=== PATIENT | female | born 1960 | race Caucasian/White ===

== ENCOUNTER → 2019-06-06 11:39 | Outpatient (CLI) | payer OTHER, SELFPAY ==
--- NOTE | 2019-06-06 11:44 | XR_ITS ---
PROCEDURE: XR LUMBAR SPINE MIN 4V CLINICAL INDICATION: Back pain COMPARISON: LS5 LUMBAR SPINE 5 VIEWS from 07/24/2017 FINDINGS: There is stable mild anterior subluxation of L4 on L5. There is stable multiple levels of moderate loss of disc space height throughout the lumbar spine especially L3-4 and L4-5 as well as lower thoracic spine and L1-2 level with anterior small spurs. There is moderate osteopenia which is unchanged. There is stable subchondral sclerosis and facet joint narrowing on the right at L3 through S1 levels and on the left at L4 through S1 levels. There is stable moderate compression deformity specially on the left side at L2 level. Posterior elements are otherwise intact. IMPRESSION: No change. L4 on L5 subluxation from facet arthrosis. Osteopenia. Multiple levels of chronic intervertebral osteochondrosis. Dictated by: Albert Dsouza 06/06/2019 12:12 Electronically signed by Albert Dsouza in [place] 06/06/2019 12:12
[2019-06-06 12:29] LABS: Basophils % 0.2 % (0.1-2.0); Eosinophils # 0.2 K/mm3 (0.0-0.4); Eosinophils % 3.7 % (0.1-12.0); Hematocrit 41.5 % (37.0-47.0); Hemoglobin 13.4 g/dL (12.2-16.2); Lymphocytes # 1.9 K/mm3 (0.7-4.5); Lymphocytes % 31.6 % (10-50); Mean Corpuscular HGB Conc 32.3 g/dL (31.8-35.4); Mean Corpuscular Hemoglobin 33.8 pg (27.0-31.2); Mean Corpuscular Volume 104.6 fl (81-99); Mean Platelet Volume 7.6 fl (7.4-10.4); Monocytes # 0.3 K/mm3 (0.1-1.0); Monocytes % 4.3 % (1.7-9.3); Neutrophils # 3.6 K/mm3 (1.8-7.8); Neutrophils % 60.1 % (37.0-80.0); Platelet Count 260 K/mm3 (142-424); Red Blood Count 3.96 M/mm3 (4.20-5.40); Red Cell Distribution Width 13.8 % (11.5-17.5)
[2019-06-06 14:45] LABS: Erythrocyte Sedimentation Rate > 140 mm/hr (0-30)
[2019-06-06 15:17] LABS: Alanine Aminotransferase 27 U/L (12-78); Albumin Level 4.1 gm/dL (3.4-5.0); Albumin/Globulin Ratio 1.1 (1.1-1.8); Alkaline Phosphatase 109 U/L (46-116); Anion Gap 15.9 mEq/L (5-15); Aspartate Amino Transferase 28 U/L (15-37); Bilirubin,Total 0.7 mg/dL (0.2-1.0); Blood Urea Nitrogen 12 mg/dL (7-18); Calcium 9.3 mg/dL (8.5-10.1); Carbon Dioxide 25 mmol/L (21.0-32.0); Chloride 103 mmol/L (98-107); Creatinine,Serum 0.79 mg/dL (0.55-1.02); Estimated Glomerular Filt Rate 74 ml/min (>60); GFR (African American) 90 ML/MIN (>60); Globulin 3.6 gm/dl (1.3-3.2); Glucose 90 mg/dL (74-106); Potassium 3.9 mmoL/L (3.5-5.1); Sodium 140 mmol/L (136-145); Total Protein,Serum 7.7 gm/dL (6.4-8.2)
[2019-06-06 15:22] LABS: C-Reactive Protein < 0.2 mg/dL (0.0-0.9)
[2019-06-07 12:15] LABS: Anti-Centromere B Antibodies <0.2 AI (0.0-0.9); Anti-Jo-1 <0.2 AI (0.0-0.9); Anti-Smith Antibody <0.2 AI (0.0-0.9); Antichromatin Antibodies <0.2 AI (0.0-0.9); Antiscleroderma-70 Antibodies 0.8 AI (0.0-0.9); RNP Antibodies <0.2 AI (0.0-0.9); Sjogren's Anti-SS-A <0.2 AI (0.0-0.9); Sjogren's Anti-SS-B <0.2 AI (0.0-0.9)
[2019-06-07 17:13] LABS: Anti-DNA (DS) Ab Qn <1 IU/mL (0-9); RA Latex Turbid. 10.6 IU/mL (0.0-13.9)
[2019-06-08 03:36] LABS: PTT-LA 33.9 sec (0.0-51.9); dRVVT 41.6 sec (0.0-47.0)
[2019-06-08 12:26] LABS: Lupus Reflex Interpretation Comment: (.)
[2019-06-11 07:13] LABS: Anti-Cyclic Citrullinated Pept 9 units (0-19)
== END ==
PROVIDERS: PCP Emergency Medicine; Visit Provider Nurse Practitioner Family
DX: M19.90 Unspecified osteoarthritis, unspecified site (principal)
CPT/HCPCS: 36415; 72110; 80053; 85025; 85613; 85651; 86140; 86200; 86225; 86235; 86431

== ENCOUNTER → 2019-06-19 12:28 | Outpatient (CLI) | payer OTHER, SELFPAY | PROVIDERS: PCP Emergency Medicine; Visit Provider Internal Medicine | DX: R00.2 Palpitations (principal) | CPT/HCPCS: 93225; 93226 ==

== ENCOUNTER → 2019-06-21 09:06 | Outpatient (CLI) | payer OTHER, SELFPAY ==
--- NOTE | 2019-06-21 09:08 | XR_ITS ---
PROCEDURE: XR DEXA AXIAL SKELETON CLINICAL HISTORY: osteopenia seen on lumbar spine xray, the patient is postmenopausal, history of fracture as an adult COMPARISON: No exams were available for comparison FINDINGS: The average BMD lumbar spine L1 through L4 is 1.138 grams/centimeter sq with T-score -0.3. The total BMD left hip is 0.762 grams/centimeter squared with T-score -2.0. The left femoral neck is 0.783 grams/centimeter sq with a T-score -1.8 the T-scores for the total right hip and right femoral neck are -1.5 and -1.7 respectively. IMPRESSION: Normal value lumbar spine, osteopenia values for both hips, consider follow-up study in approximately 2 years Dictated by: Dr. Glenn Hinds MD 06/21/2019 11:[address] Glenn Hinds MD in [place] 06/21/2019 11:06
== END ==
PROVIDERS: PCP Emergency Medicine; Visit Provider Emergency Medicine
DX: M85.89 Other specified disorders of bone density and structure, multiple sites (principal)
CPT/HCPCS: 77080

== ENCOUNTER → 2019-06-28 07:20 | Outpatient (CLI) | payer OTHER, SELFPAY ==
--- NOTE | 2019-06-28 07:22 | CA_ITS ---
FORMER[facility] RADIOLOGICAL CONSULTATION Patient Name : Zainab Ambrosio X-RAY # : [id number] Physician: KHOI GALLARDO AGE: 59Y : 1960 00:00:00 ( F ) Exam : CA ECHO DOPPLER COMPLETE ACC # : [id number] Study Date : 06/28/2019 10:13:34 Patient Class : O FINAL REPORT CLINICAL DATA: FINDINGS: TRANSCRIBED REPORT EXAM: Comprehensive 2D, Doppler, and color-flow Echocardiogram Metal Bending Machine Operator: Tiffany Robins CRT Ht: 5 ft 8 in Wt: 217lbs BSA: 2.12 BP: 137/83 mmHg Indications: palpitations, edema, sob, 2D Dimensions LVOT 1.90 cm (M/F) 1.5-2.5 M-Mode Dimensions RVDd 2.30 cm (0.9-2.6) LA Diam 3.80 cm (1.9-4.0) LVDd 4.30 cm (3.5-5.7) Ao Diam 2.80 cm (2.0-3.7) LVDs 2.30 cm (3.5-5.7) AV Cusp 1.90 cm (1.5-2.6) IVSd 1.10 cm (0.6-1.1) PWd 0.90 cm (0.6-1.1) EF (Teich) 78.20% FS 46.50% EDV (Teich) 83.10 mL ESV (Teich) 18.10 mL LV Diastology E/A Ratio 0.90 MED E' 5.27 (< 7 cm/sec) E'/MED E' Ratio 16.50 (>14) LAT E' 9.26 (<10 cm/sec) E/LAT E' Ratio 9.40 (>14) Aortic Valve AoV Peak Thong. 156.00 (50-130 cm/s) AO Peak GR. 10.00 mmHg Mitral Valve MV E Max Thong. 86.90 (40-130 cm/s) MV A Velocity 95.80 (40-130 cm/s) E/A Ratio 0.90 Pulmonary Valve PA Accel Time 141.00 (>120 msec) Tricuspid Valve TR P. Velocity 231.00 cm/s RAP Estimate 10.00 mmHg RVSP 31.00 mmHg Electronically signed by : IMPRESSION: Dictated by at Transcribed by at
--- NOTE | 2019-06-28 07:23 | NM_ITS ---
APPROVED REPORT Exam: Nuclear Stress Test Indication: palpitation, short of breath, fatigue Patient Location: Outpatient Stress Tech: Angela Clark MD Tech:Diann MonsivaisringtonTIARA RT(R)(N) Ht: 5 ft 7 in Wt: 210 lbs Bra Size: 36c HR: 70 bpm BP: 153/86 mmHg BSA: 2.07 m2 BMI: 32.8 History: palpitation, short of breath, fatigue Procedure: Patient received a 0.4 mg of intravenous Lexiscan, resting heart rate 70 bpm, resting blood pressure 153/86 mmHg, with Lexiscan maximum heart rate achived was 92 bpm which is % of the maximum predicted heart rate and blood pressure was 151/86 mmHg. With Lexiscan, patient denied any complaint of chest pain. Cardiac Stress and Resting SPECT Images: Cardiac Stress and Resting SPECT images were obtained using technetium 99m Myoview 31.7 mCi stress and 10.47 mCi at rest. NORMAL EF 80% Probable breast attenuation artifact geovanni- septal region No definite fixed or revwersable defects that would indicate infarction or ischemia Conclusion: NORMAL EF 80% Probable breast attenuation artifact geovanni- septal region No definite fixed or revwersable defects that would indicate infarction or ischemia Electronically signed by : Miki Ruiz MD 06/28/2019 18:13:51
--- NOTE | 2019-06-28 07:23 | CA_ITS ---
APPROVED REPORT Exam: Pharmacologic Technologist: lonnie betancourt, Ht: 5 ft 7 in Wt: 210 lbs BSA: 2.07 m2 HR: 70 bpm BP: 153/86 mmHg Indications: SOB, PALPATATIONS Medical History Medications: Prozac,,,,, Sumatriptan,,,,, Allergies: No known drug allergies Stress Test Details Test: LEXISCAN HR Resting HR: 75 bpm Max Heart Rate (APMHR): 161 bpm Max HR Achieved: 109 bpm Target HR (85% APMHR): 136 bpm % of APMHR: 67 Recovery HR: 77 bpm BP Resting BP: 153.0/86.0 mmHg Max BP: 161/79 mmHg Recovery BP: 140.0/81.0 mmHg ECG Resting ECG: NSR, QWave Inferiorly Maximum ST Deviation: 1.5 mm Clinical Reason for Termination: Completed Protocol Exercise duration: 04:20 min Highest Stage Achieved: Stress ECG Conclusion Symptoms: No CP No Arrhythmias ST-T Changes: < 1.5mm ST Segment Changes Non-Diagnostic Electronically signed by : Rodrigo Cho, 07/02/2019 14:58:55
--- NOTE | 2019-06-28 10:23 | HMH.ITSHM ---
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 [] prozac
== END ==
PROVIDERS: PCP Emergency Medicine; Visit Provider Urology
DX: R00.2 Palpitations (principal); R06.02 Shortness of breath; R42 Dizziness and giddiness; R60.9 Edema, unspecified
CPT/HCPCS: 78452; 93017; 93306; A9502; J2785

== ENCOUNTER → 2019-07-03 09:27 | Outpatient (CLI) | payer OTHER, SELFPAY ==
--- NOTE | 2019-07-03 09:28 | US_ITS ---
PROCEDURE: US ABDOMEN COMPLETE CLINICAL INDICATION: elevated sed rate Elevated sed rate COMPARISON: No exams were available for comparison FINDINGS: PANCREAS: Unremarkable. No obvious mass or abnormal fluid collection. No ductal dilatation LIVER: No focal liver lesions demonstrated. Homogeneous echogenicity. No intrahepatic biliary ductal dilatation evident. There is appropriate direction of blood flow within a non dilated portal vein RIGHT KIDNEY: Unremarkable. Normal size and echogenicity. No hydronephrosis LEFT KIDNEY: Unremarkable. Normal size and echogenicity. No hydronephrosis GALLBLADDER: No gallstones, gallbladder wall thickening, pericholecystic fluid, or biliary dilatation. AORTA: No evidence of aneurysmal dilatation. SPLEEN: Unremarkable. Normal size and echogenicity ASCITES: None demonstrated. IMPRESSION: No acute findings Dictated by: Miki Ruiz MD 07/03/2019 14:54 Electronically signed by Miki Ruiz MD in [facility] 07/03/2019 14:54
--- NOTE | 2019-07-03 09:28 | XR_ITS ---
PROCEDURE: XR CHEST 2V CLINICAL HISTORY: elevated sed rate Shortness of air COMPARISON: No exams were available for comparison FINDINGS: The cardiomediastinal silhouette and pulmonary vascularity are within normal limits. The lungs are clear without infiltrates, suspicious nodules, or pleural effusions. No acute bony abnormalities. IMPRESSION: No acute findings. Dictated by: Miki Ruiz MD 07/03/2019 14:13 Electronically signed by Miki Ruiz MD in [facility] 07/03/2019 14:13
--- NOTE | 2019-07-03 09:28 | US_ITS ---
PROCEDURE: US TRANSVAGINAL CLINICAL INDICATION: Elevated sed COMPARISON: Rate FINDINGS: There has been prior hysterectomy and bilateral oophorectomy. No pelvic mass abnormal fluid collection or other significant anomaly evident. IMPRESSION: Prior complete hysterectomy otherwise negative Dictated by: Miki Ruiz MD 07/03/2019 14:48 Electronically signed by Miki Ruiz MD in [facility] 07/03/2019 14:48
== END ==
PROVIDERS: PCP Nurse Practitioner Family; Visit Provider Nurse Practitioner Family
DX: R70.0 Elevated erythrocyte sedimentation rate (principal)
CPT/HCPCS: 71046; 76700; 76830

== ENCOUNTER → 2019-10-28 10:30 | Outpatient (POV) | payer MEDICAID, SELFPAY ==
[2019-10-28 10:54] VITALS: BP 145/85; PULSE 91; RESP 18; O2SAT 99; BMI 28.8
--- NOTE | 2019-10-28 12:51 | HMH.PMCON ---
Assessment and Plan (1) Back pain Current visit: Yes Status: Chronic Qualifiers: Back pain location: low back pain Chronicity: chronic Back pain laterality: left Category: Medical Code(s): M54.9 - Dorsalgia, unspecified (2) Degenerative disc disease Current visit: Yes Status: Chronic Category: Medical - Assessment and plan all Dx Assessment and Plan for all problems:: We will schedule the patient for an MRI to help determine pathology of her low back so we can move forward with the plan of care. Patient is continuing a home stretching program. He is continuing anti-inflammatories we will follow-up with her after MRI reassess her symptoms at that time. She has been instructed to call the office if she has any issues prior to her next appointment. Dr. Flores has reviewed this note and agrees with this plan of care. This note was dictated using voice recognition software and may contain errors or omissions HPI - Data of Consult Consult date: 10/28/19 Requesting Physician: Ashly Carcamo APRN Primary Care Provider: Alcon Marrero MD - Consult Narrative Reason for consult: Back pain History of present illness: Ms. Ambrosio is a 59 year old female who presents today for consultation in regards to her low back and leg pain. Patient has quite a bit of low back pain is worse with standing long periods of time. She utilizes heating pad and Biofreeze to help with the pain she rates it a 7/10. She is had it for several years she has left leg numbness and tingling all the way to her toes. Patient's tried Motrin with minimal relief. Patient does not have any updated imaging she does have a x-ray that shows degenerative changes and facet arthrosis. CC: Ashly Carcamo APRN [facility] History I have reviewed the patient's past medical history: Yes Medical History: Reports:: Anxiety, Depression, Migraine, Palpitations *Have you ever received a pneumonia vaccine?: Yes *Have you received a flu vaccine this season?: Yes Other Medical History: Reports: Arthritis Other Surgeries: Yes: No Previous Surgery, Hysterectomy-Total Amputation: No Fractures: No - *Social History Smoking Status: Never smoker Alcohol Intake: current Alcohol Intake Frequency:: a few times a week Substance Use Type: denies use *Occupational Status:: other Housing: house Household Members: other *Travel in the last 8 weeks: None - Psychiatric History Pschychiatric History:: Reports:: Anxiety, Depression Family Hx:: Unable to obtain Review of Systems - Review of Systems ROS General: no recent weight change, no fever, no sleep disturbances Respiratory: no cough, no shortness of air, no recurring pulmonary infections Cardiovascular/Peripheral Vascular: No chest pain, No palpitations, no edema, no shortness of breath. Gastrointestinal: no new onset incontinence, normal bowel movements reported Genitourinary: no new onset incontinence Musculoskeletal: Back pain, leg pain Psychiatric: normal mood/ affect Neurological: [denies new onset weakness in extremities], [denies new onset balance issues] Meds Home Medications Medication Instructions Recorded Confirmed Type sumatriptan succinate 100 mg tablet 100 mg PO DAILY PRN #90 tab 06/05/19 10/16/19 Rx bisoprolol fumarate 10 mg tablet 10 mg PO DAILY #30 tab 07/31/19 10/16/19 Rx Allergies Allergy/AdvReac Type Severity Reaction Status Date / Time No Known Allergies Allergy Verified 10/16/19 13:25 Objective Vital signs: Pulse Resp BP Pulse Ox 91 H 18 145/85 H 99 10/28/19 10:54 10/28/19 10:54 10/28/19 10:54 10/28/19 10:54 Narrative: Physical Exam General: Alert and oriented x3, no acute distress, pleasant and cooperative, [on room air] Lungs: Resps E/U, Symmetrical chest expansion, Eyes: PERRL Musculoskeletal: Flexion and extension of lumbar spine somewhat guarded secondary to pain, deep tendon reflexes normal, strength in
== END ==
PROVIDERS: PCP Emergency Medicine; Visit Provider Clinical Nurse Specialist Family Health
DX: M54.9 Dorsalgia, unspecified (principal)
CPT/HCPCS: 99202

== ENCOUNTER → 2019-11-04 08:00 | Outpatient (CLI) | payer MEDICAID, SELFPAY ==
--- NOTE | 2019-11-04 08:08 | MR_ITS ---
PROCEDURE: MR LUMBAR SPINE WO CON CLINICAL INDICATION: BACK PAIN Low back pain with left-sided leg pain, left toe numbness, right-sided low back pain COMPARISON: XR LUMBAR SPINE MIN 4V from 06/06/2019 TECHNIQUE: Standard multiplanar multiecho sequences are performed without contrast. 3-D MIP and myelographic images are also rendered and reviewed FINDINGS: There is mild lumbar scoliosis convex right. The spinal cord ends at the T12-L1 level. There is multilevel lumbar spondylosis. T11-T12: Mild degenerative disc disease. T12-L1: Mild degenerative disc disease. There is a Schmorl's node along the superior endplate of L1 with edematous changes at and about the Schmorl's node. L1-L2: Degenerative disc disease with mild bulging disc and minimal retrolisthesis of L1 of 2 mm. L2-L3: Mild degenerative disc disease with minimal bulging disc which is slightly eccentric toward the left with mild left-sided foraminal narrowing. L3-L4: Mild degenerative disc disease with mild facet ligamentum hypertrophy with bilateral lateral recess narrowing and mild left foraminal narrowing. L4-5: There is mild degenerative disc disease with 4 mm anterolisthesis of L4 along with facet ligamentum hypertrophy and bulging disc with resultant canal stenosis with bilateral lateral recess narrowing and bilateral foraminal narrowing. The lateral recess narrowing slightly greater on the left. L5-S1: Mild facet ligamentum hypertrophy. No extruded herniated disc is evident. IMPRESSION: 1. Lumbar scoliosis convex right with multilevel lumbar spondylosis with degenerative disc disease, bulging disc, and facet ligamentum hypertrophy with varying degrees of lateral recess and foraminal narrowing. Please see above for detailed description at each level. 2. Degenerative disc disease at L4-5 with 4 mm anterolisthesis of L4 along with facet ligamentum hypertrophy and bulging disc with resultant canal stenosis with bilateral lateral recess narrowing and bilateral foraminal narrowing. The lateral recess narrowing slightly greater on the left. 3. No extruded herniated disc evident Dictated by: Miki Ruiz MD 11/05/2019 06:27 Electronically signed by Miki Ruiz MD in [place] 11/05/2019 06:27
== END ==
PROVIDERS: PCP Emergency Medicine; Visit Provider Clinical Nurse Specialist Family Health
DX: M54.5 Low back pain (principal)
CPT/HCPCS: 72148; 76376

== ENCOUNTER → 2019-11-19 12:06 | Outpatient (POV) | payer MEDICAID, SELFPAY ==
--- NOTE | 2019-11-19 12:23 | P.CONS_ITS ---
[facility] Pain Management SOAP Note Subjective:: Patient is a pleasant 59-year-old white female who presents today for follow-up after her MRI. She has degenerative disc disease bulging disc and ligamentum flavum hypertrophy. She rates her pain a 7 out of 10 which of her pain is when she is walking and standing to find herself leaning forward to get relief. We talked about a mild procedure and an epidurogram/epidural injection. She would like to move forward with this. She is not on any anticoagulation therapy. ROS General: no recent weight change, no fever, no sleep disturbances Respiratory: no cough, no shortness of air, no recurring pulmonary infections Cardiovascular/Peripheral Vascular: No chest pain, No palpitations, no edema, no shortness of breath. Gastrointestinal: no new onset incontinence, normal bowel movements reported Genitourinary: no new onset incontinence Musculoskeletal: Back pain, leg pain Psychiatric: normal mood/ affect, [denies depression], [denies anxiety] Neurological: [denies new onset weakness in extremities], [denies new onset balance issues] Objective:: Physical Exam General: Alert and oriented x3, no acute distress, pleasant and cooperative, [on room air] Lungs: Resps E/U, Symmetrical chest expansion, Eyes: PERRL Musculoskeletal: Flexion and extension of lumbar spine somewhat guarded secondary to pain, deep tendon reflexes normal, strength in upper and lower extremities [5/5], [abnormal gait noted] Neurological: speech clear, director education equal, no gross sensory deficits Assessment:: Degenerative disc disease lumbar spine with lumbar radiculopathy and spinal stenosis with ligamentum flavum hypertrophy and neurogenic claudication Plan:: We will set the patient up for L4-L5 lumbar epidural steroid injection along with an epidurogram to determine if she is a candidate for mild procedure. I will follow-up with her afterwards reassess her symptoms at that time she has been instructed to call the office if she has any issues prior to her next appointment. Dr. Flores has reviewed this note and agrees with this plan of care. This note was dictated using voice recognition software and may contain errors or omissions [facility] History I have reviewed the patient's past medical history: Yes Medical History: Reports:: Anxiety, Depression, Migraine, Palpitations *Have you ever received a pneumonia vaccine?: Yes *Have you received a flu vaccine this season?: Yes Other Medical History: Reports: Arthritis Other Surgeries: Yes: No Previous Surgery, Hysterectomy-Total Amputation: No Fractures: No - *Social History Smoking Status: Never smoker Alcohol Intake: current Alcohol Intake Frequency:: a few times a week Substance Use Type: denies use *Occupational Status:: other Housing: house Household Members: other *Travel in the last 8 weeks: None - Psychiatric History Pschychiatric History:: Reports:: Anxiety, Depression Family Hx:: Unable to obtain
[2019-11-19 12:28] VITALS: BP 113/89; PULSE 74; RESP 18; O2SAT 98; BMI 28.8
== END ==
PROVIDERS: PCP Emergency Medicine; Visit Provider Clinical Nurse Specialist Family Health
DX: M48.062 Spinal stenosis, lumbar region with neurogenic claudication (principal); M46.06 Spinal enthesopathy, lumbar region
CPT/HCPCS: 99212

== ENCOUNTER → 2020-10-14 11:53 | Outpatient (CLI) | payer MEDICAID, SELFPAY ==
[2020-10-14 12:16] LABS: Basophils % 0.6 % (0.1-2.0); Eosinophils # 0.2 K/mm3 (0.0-0.4); Eosinophils % 2.7 % (0.1-12.0); Hematocrit 39.9 % (37.0-47.0); Lymphocytes # 2.3 K/mm3 (0.7-4.5); Lymphocytes % 37.9 % (10-50); Mean Corpuscular HGB Conc 32.7 g/dL (31.8-35.4); Mean Corpuscular Hemoglobin 33.5 pg (27.0-31.2); Mean Corpuscular Volume 102.6 fl (81-99); Mean Platelet Volume 8.7 fl (7.4-10.4); Monocytes # 0.3 K/mm3 (0.1-1.0); Monocytes % 5.2 % (1.7-9.3); Neutrophils # 3.3 K/mm3 (1.8-7.8); Neutrophils % 53.6 % (37.0-80.0); Platelet Count 185 K/mm3 (142-424); Red Blood Count 3.89 M/mm3 (4.20-5.40); Red Cell Distribution Width 13.5 % (11.5-17.5); White Blood Count 6.1 K/mm3 (4.8-10.8)
[2020-10-14 12:56] LABS: Alanine Aminotransferase 19 U/L (12-78); Albumin Level 4.5 g/dl (3.5-5.0); Albumin/Globulin Ratio 1.4 (1.1-1.8); Alkaline Phosphatase 107 U/L (38-126); Anion Gap 10.2 mEq/L (5-15); Aspartate Amino Transferase 27 U/L (14-36); Bilirubin,Total 0.4 mg/dl (0.2-1.3); Blood Urea Nitrogen 22 mg/dl (7-17); Calcium 9.8 mg/dl (8.4-10.2); Carbon Dioxide 31 mmol/L (22.0-30.0); Chloride 104 mmol/L (98-107); Chol/HDL Ratio 2.3 (1-3.5); Cholesterol 191 mg/dl (140-200); Estimated Glomerular Filt Rate 102 ml/min (>60); GFR (African American) 123 ML/MIN (>60); Globulin 3.2 g/dL (1.3-3.2); Glucose 93 mg/dl (74-100); HDL Cholesterol 82 mg/dl (40-60); Potassium 4.2 mmoL/L (3.5-5.1); Sodium 141 mmol/L (136-145); Total Protein,Serum 7.7 g/dl (6.3-8.2); Triglycerides 234 mg/dl (30-150); VLDL Cholesterol 47 mg/dL (0-40)
[2020-10-14 13:00] LABS: Alanine Aminotransferase 19 U/L (12-78); Albumin Level 4.5 g/dl (3.5-5.0); Alkaline Phosphatase 109 U/L (38-126); Aspartate Amino Transferase 27 U/L (14-36); Bilirubin,Indirect 0.4 mg/dL (0.0-0.9); Bilirubin,Total 0.4 mg/dl (0.2-1.3); Bilirubin,Unconjugated 0.4 mg/dL (0.0-1.1); Total Protein,Serum 7.6 g/dl (6.3-8.2)
[2020-10-14 13:07] LABS: Direct LDL Cholesterol 54.06 mg/dL (100-129)
[2020-10-14 13:13] LABS: Free T4 (Free Thyroxine) 0.95 ng/dl (0.78-2.19)
[2020-10-14 13:17] LABS: 25-OH Vitamin D, Total < 12.8 ng/mL (30-100)
[2020-10-14 13:26] LABS: Thyroid Stimulating Hormone 7.38 uIU/mL (0.465-4.68)
== END ==
PROVIDERS: Nurse Practitioner Family; Visit Provider Emergency Medicine
DX: I10 Essential (primary) hypertension (principal); E55.9 Vitamin D deficiency, unspecified; E66.9 Obesity, unspecified
CPT/HCPCS: 36415; 80053; 80061; 80076; 82306; 84439; 84443; 85025

== ENCOUNTER → 2022-12-15 09:58 | Outpatient (CLI) | payer MEDICAID, SELFPAY ==
--- NOTE | 2022-12-15 10:03 | XR_ITS ---
FINAL REPORT CLINICAL HISTORY: right hip pain COMPARISON: None FINDINGS: RIGHT HIP Two views of the right hip demonstrate no acute fracture or dislocation. There is mild degenerative change of the bilateral hips and lower lumbar spine. The visualized bony structures are well aligned. No soft tissue abnormality is seen. IMPRESSION: Degenerative change with no acute bony abnormality. Reviewed, Interpreted and Dictated by Roger Barros III, MD Transcribed by Kalina Khan Authenticated and [facility]
== END ==
PROVIDERS: PCP Emergency Medicine; Visit Provider Orthopaedic Surgery
DX: M25.551 Pain in right hip (principal)
CPT/HCPCS: 73502

== ENCOUNTER → 2022-12-22 14:28 | Outpatient (CLI) | payer MEDICAID, SELFPAY ==
[2022-12-22 16:35] LABS: Basophils % 0.3 % (0.1-2.0); Eosinophils # 0.2 K/mm3 (0.0-0.4); Eosinophils % 1.9 % (0.1-12.0); Hematocrit 42.5 % (37.0-47.0); Hemoglobin 13.4 g/dL (12.2-16.2); Lymphocytes # 2.3 K/mm3 (0.7-4.5); Lymphocytes % 28.4 % (10-50); Mean Corpuscular HGB Conc 31.5 g/dL (31.8-35.4); Mean Corpuscular Hemoglobin 32.5 pg (27.0-31.2); Mean Corpuscular Volume 103.2 fl (81-99); Mean Platelet Volume 8.9 fl (7.4-10.4); Monocytes # 0.5 K/mm3 (0.1-1.0); Monocytes % 5.7 % (1.7-9.3); Neutrophils # 5.1 K/mm3 (1.8-7.8); Neutrophils % 63.7 % (37.0-80.0); Platelet Count 255 K/mm3 (142-424); Red Blood Count 4.12 M/mm3 (4.20-5.40); Red Cell Distribution Width 13.6 % (11.5-17.5)
[2022-12-22 16:56] LABS: Chloride 103 mmol/L (98-107); Sodium 140 mmol/L (136-145)
[2022-12-22 16:58] LABS: Blood Urea Nitrogen 18 mg/dl (7-17); Estimated Glomerular Filt Rate 125 ml/min (>60); GFR (African American) 151 ML/MIN (>60)
[2022-12-22 16:59] LABS: Alanine Aminotransferase 28 U/L (12-78); Albumin Level 4.4 g/dl (3.5-5.0); Alkaline Phosphatase 115 U/L (38-126); Aspartate Amino Transferase 35 U/L (14-36); Bilirubin,Direct 0.1 mg/dl (0.0-0.4); Bilirubin,Indirect 0.4 mg/dL (0.0-0.9); Bilirubin,Total 0.5 mg/dl (0.2-1.3); Bilirubin,Unconjugated 0.4 mg/dL (0.0-1.1); Calcium 9.3 mg/dl (8.4-10.2); Carbon Dioxide 27 mmol/L (22.0-30.0); Cholesterol 197 mg/dl (140-200); Glucose 73 mg/dl (74-100); Total Protein,Serum 7.3 g/dl (6.3-8.2); Triglycerides 176 mg/dl (30-150); VLDL Cholesterol 35 mg/dL (0-40)
[2022-12-22 17:00] LABS: Chol/HDL Ratio 2.6 (1-3.5); HDL Cholesterol 75 mg/dl (40-60)
[2022-12-22 17:10] LABS: Direct LDL Cholesterol 69.35 mg/dL (100-129)
[2022-12-22 17:15] LABS: Free T4 (Free Thyroxine) 0.78 ng/dl (0.78-2.19)
[2022-12-22 17:30] LABS: Thyroid Stimulating Hormone 3.14 uIU/mL (0.465-4.68)
== END ==
PROVIDERS: PCP Emergency Medicine; Visit Provider Physician Assistant
DX: R00.2 Palpitations (principal); I10 Essential (primary) hypertension; R60.0 Localized edema
CPT/HCPCS: 36415; 80048; 80061; 80076; 83735; 84439; 84443; 85025; 93225; 93226

== ENCOUNTER → 2022-12-29 14:32 | Outpatient (CLI) | payer MEDICAID, SELFPAY ==
[2022-12-29 17:01] LABS: Vitamin B12 321 pg/mL (239-931)
[2022-12-29 17:03] LABS: Folate 6.22 ng/mL
== END ==
PROVIDERS: PCP Emergency Medicine; Visit Provider Physician Assistant
DX: R20.0 Anesthesia of skin (principal)
CPT/HCPCS: 36415; 82607; 82746

== ENCOUNTER → 2023-01-06 11:37 | Outpatient (POV) | payer MEDICAID, SELFPAY ==
[2023-01-06 12:39] VITALS: BP 139/70; PULSE 82; RESP 18; O2SAT 96; BMI 31.3
--- NOTE | 2023-01-06 13:18 | EXP.PAIN.OV ---
HPI Data of Consult Patient: new to practice Consult date: 01/06/23 Requesting Physician: Krystal Javier APRN Primary Care Provider: Alcon Marrero MD Consult Narrative Reason for consult: Low back pain, right hip pain History of present illness: Ms. Ambrosio is a 62 year old female who presents today as a new patient. She is a referral from Dr. Javier's office here at [facility]. Her pain today is a 9 out of 10. She states her pain is all in her low back and right hip. She states this has been going on for years and progressively worsened over time. She does believe it is all related to arthritis. Patient has had an older MRI done from a couple of years ago and is also had a recent right hip x-ray that did just show arthritis. Patient does describe her pain as an aching, throbbing, constant sensation that is worse with additional movement or activity. Patient states it does interfere with her ability to perform activities of daily living such as cooking and cleaning. Patient states she cannot walk for long distances due to her worsening symptoms and frequently has to take multiple breaks. She does state that she was active before all this started being more problematic a couple of years ago and now she feels like she does not get any activity done without significant disability. Patient has tried [id number] Tylenol and ibuprofen along with heat and ice and topicals with minimal relief. She states that she has tried getting Dr. Marrero's office to prescribe arthritis medicine however they have not. Patient does have a history of tachycardia and palpations in the past. She states she is currently prescribed the nadolol for the fast heart rate. She is currently prescribed butyryl for her migraine headaches. She also states she will occasionally have knee pains but she is unsure whether or not if this was related to a fall several years ago where she fell and broke multiple toes and that they did recommend a knee brace at that time but it never happened. Patient has had physical therapy in the past however she did not get significant relief. Her Thierno is [id number]. Its been reviewed and appropriate. CC: Krystal Javier APRN [facility] Disclaimer: The information contained in this section may have been updated after the patient was seen, as this information can be updated by other users. Medical History Dizziness Edema Numbness of both lower extremities Social History (Updated 01/06/23 @ 12:40 by Stacia Brock RN) Smoking Status: Never smoker alcohol intake: current substance use type: denies use current occupational status: unemployed Travel in the last 8 weeks: None household members: other housing: house number of children: 2 current occupational exposures/hazards: No Review of Systems Review of Systems Review of systems:: pertinent systems reviewed and negative unless documented below Review of systems (narrative): Review of Systems: General: No recent weight changes, no fever, no sleep disturbances Respiratory: No cough, no shortness of air, no recurring pulmonary infections Cardiovascular/peripheral vascular: No chest pain, no palpitations, no edema, no shortness of breath Gastrointestinal: No new onset incontinence, normal bowel movements reported Genitourinary: No new onset incontinence Musculoskeletal: Low back pain, right hip pain Psychiatric: [Normal mood/affect] Neurological: [Denies weakness in extremities], [denies balance issues] Meds Home Medications and Allergies Home Medications Medication Instructions Recorded Confirmed Type dtzseskhqu-rckxlmhfnfpkf-wuvjfixu 1 cap PO DAILY PRN headache #30 11/16/22 01/06/23 Rx 50 mg-300 mg-40 mg capsule caps (Fioricet) nadolol 20 mg tablet 10 mg PO DAILY BLOOD PRESSURE 01/06/23 01/06/23 History tizanidine 4 mg tablet (Zanaflex) 4 mg PO BID #60 tabs 01/06/23 Rx ubrogepant 10
== END | disposition home or self-care (01) ==
PROVIDERS: PCP Emergency Medicine; Visit Provider Nurse Practitioner Family
DX: M51.16 Intervertebral disc disorders with radiculopathy, lumbar region (principal); M25.551 Pain in right hip; M24.28 Disorder of ligament, vertebrae
CPT/HCPCS: 99202; G0463

== ENCOUNTER 2023-01-24 10:37 | Day surgery (SDC) | payer MEDICAID, SELFPAY ==
[2023-01-24 10:52] VITALS: BP 166/93; PULSE 71; RESP 18; TEMP 36.5; O2SAT 100; BMI 31.4
[2023-01-24 11:11] VITALS: BP 178/90; PULSE 89; RESP 18; O2SAT 97
[2023-01-24 11:12] VITALS: BP 178/90; PULSE 89; RESP 18; O2SAT 97
[2023-01-24 11:16] VITALS: BP 151/70; PULSE 77; RESP 18; O2SAT 100
--- NOTE | 2023-01-24 11:40 | EXP.PAIN.PRO ---
Procedure Date: 01/24/23 Time: 11:00 Anesthesiologist:: Jean Pierre Rodriguez CRNA Complications:: None Pre-procedure Diagnosis:: Osteoarthritis right hip. Post-procedure Diagnosis:: Same. Indications for Procedure:: Patient is a very pleasant 62-year-old female comes our clinic today for a right intra-articular hip injection. She has difficulty with ambulation. Difficulty sitting and/or standing for any length of time. Patient has difficulty transitioning from sitting to standing. She rates her pain 8/10. Procedure Details:: Details of the procedure were explained to the patient. The patient was taken to procedure room placed in the supine position. The area over the right hip was cleaned using chlorhexidine as a cleansing solution. Using fluoroscopy guidance a 3 and half inch 22-gauge spinal needle was used to access the right hip joint without difficulty. After negative aspiration 3 cc of 1% lidocaine +3 cc of 0.25% Marcaine and 40 mg of Depo-Medrol was injected. Needle was withdrawn. Band-Aid applied. Patient tolerated procedure without difficulty. There are no complications. Plan and Disposition:: Patient was discharged without incident.
== END 2023-01-24 11:16 | disposition home or self-care (01) ==
PROVIDERS: PCP Emergency Medicine; Visit Provider Nurse Anesthetist, Certified Registered
DX: M16.11 Unilateral primary osteoarthritis, right hip (principal)
CPT/HCPCS: 20610; 77002; J1040

== ENCOUNTER → 2023-02-13 11:34 | Outpatient (POV) | payer MEDICAID, SELFPAY ==
--- NOTE | 2023-02-13 12:04 | EXP.PAIN.SOA ---
[facility] Pain Management SOAP Note Subjective:: Patient is a pleasant 62-year-old female who presents today for follow-up of right hip intra-articular injection on 01/24/2023. We are currently treating the patient for degenerative disc disease of lumbar spine with lumbar radiculopathy symptoms, ligamentum flavum hypertrophy, right hip pain, right knee pain. Today she rates her pain a 7 out of 10. Patient states she had at least 70% improvement following her intra-articular hip injection lasting over the last 2 weeks. Patient states she was able to move around easier and walk better. She states she did have better range of motion and even while shopping at [employer] she did not have to get a buggy because her pain had decreased significantly. Today she does state that she feels like she is back to her baseline. She states her pain is all along her right hip and describes it as an aching, throbbing sensation that is worse with increased activity. She states that even during the time that the injection was helping she had improved symptoms in her right knee. Patient does state today that she is experiencing right knee and right hip pain. She states it does interfere with her ability to perform activities of daily living. She is currently prescribed butyryl from Dr. Marrero's office and compounding cream from our office. Her Thierno is [id number]. Its been reviewed and appropriate. Review of Systems: General: No recent weight changes, no fever, no sleep disturbances Respiratory: No cough, no shortness of air, no recurring pulmonary infections Cardiovascular/peripheral vascular: No chest pain, no palpitations, no edema, no shortness of breath Gastrointestinal: No new onset incontinence, normal bowel movements reported Genitourinary: No new onset incontinence Musculoskeletal: Right hip pain, right knee pain Psychiatric: [Normal mood/affect] Neurological: [Denies weakness in extremities], [denies balance issues] Objective:: Physical Exam: General: Alert and oriented x3, no acute distress, pleasant and cooperative Lungs: Respirations even and unlabored, symmetrical chest expansion Eyes: PERRL Musculoskeletal: Flexion and extension of right hip somewhat guarded secondary to pain, [antalgic gait noted] Neurological: Speech clear, no gross sensory deficit Assessment:: Degenerative disc disease of lumbar spine with lumbar radiculopathy symptoms, ligamentum flavum hypertrophy, right hip pain, right knee pain Plan:: Patient did have significant improvement of upwards of 70% following her first intra-articular hip injection lasting 2 weeks. Patient is experiencing worsening pain in her right hip with limited range of motion during today's visit. I have discussed with the patient that she may benefit from a repeat right hip intra-articular injection. Risk and benefits were discussed with the patient and she would like to proceed forward with this plan of care. I will also order the patient a right knee brace and have physical therapy fit her for this device. Patient will be scheduled for a right hip intra-articular injection. Patient has been instructed to contact the clinic with any concerns before the next appointment. Dr. Flores has reviewed this note and agrees with this plan of care. This note was dictated using voice recognition software and make contain errors or omissions. [facility] Disclaimer: The information contained in this section may have been updated after the patient was seen, as this information can be updated by other users. Medical History (Updated 01/30/23 @ 14:11 by Nevaeh Hays APRN) Dizziness Edema Generalized anxiety disorder Numbness of both lower extremities Family History (Updated 01/24/23 @ 10:52 by Christelle Morrow RN) Other No significant family history Social History Smoking Status: Never smoker alcohol intake: current substance use type: denies use cu
[2023-02-13 12:29] VITALS: BP 130/82; PULSE 79; RESP 18; O2SAT 98; BMI 32.3
== END ==
PROVIDERS: PCP Emergency Medicine; Visit Provider Nurse Practitioner Family
DX: M51.16 Intervertebral disc disorders with radiculopathy, lumbar region (principal); M47.26 Other spondylosis with radiculopathy, lumbar region; M25.551 Pain in right hip; M25.561 Pain in right knee
CPT/HCPCS: 99212; G0463

== ENCOUNTER 2023-02-28 10:09 | Day surgery (SDC) | payer MEDICAID, SELFPAY ==
[2023-02-28 10:20] VITALS: BP 146/74; PULSE 81; RESP 16; TEMP 36.4; O2SAT 96; BMI 31.4
[2023-02-28 10:23] VITALS: BP 162/85; PULSE 76; RESP 18; O2SAT 97
--- NOTE | 2023-02-28 10:31 | P.PCN_ITS ---
Procedure Date: 02/28/23 Time: 10:19 Anesthesiologist:: Jean Pierre Rodriguez CRNA Complications:: None Pre-procedure Diagnosis:: Degenerative osteoarthritis right hip. Chronic right hip pain. Lumbar back pain. Lumbar radiculopathy. Post-procedure Diagnosis:: Same. Indications for Procedure:: Very pleasant 63-year-old female comes our clinic today for right intra- articular hip injection of cortisone. Patient had the same injection 6 weeks ago with significant improvement lasting 4 weeks. After which time her pain returned in its entirety. Patient requesting a second injection prior to a surgical consultation. She would really like to avoid surgery if possible. I think it is reasonable to try a second injection. However, I explained to the patient we would not continue doing what does not work for longer than 4 weeks. I urged her to set up orthopedic consultation regarding the right hip. Procedure Details:: Details of the procedure explained to the patient. The patient to procedure room placed in the supine position. The area over the right anterior hip was cleansed using chlorhexidine as a cleansing solution. Under fluoroscopy guidance a 3 and half inch 22-gauge spinal needle was used to access the right hip joint with ease. After negative aspiration and injection of 10 cc solution containing 0.25% Marcaine +1% lidocaine and 40 mg of Depo-Medrol was injected. Patient tolerated procedure without difficulty. There are no complications. Plan and Disposition:: Patient was discharged without incident. Patient was reevaluated 10 minutes post procedure she reports 90+ percent improvement in terms of her overall right hip pain with ambulation.
[2023-02-28 10:33] VITALS: BP 120/73; PULSE 67; RESP 18; O2SAT 98
== END 2023-02-28 10:33 | disposition home or self-care (01) ==
PROVIDERS: PCP Emergency Medicine; Visit Provider Nurse Anesthetist, Certified Registered
DX: M16.11 Unilateral primary osteoarthritis, right hip (principal); M54.16 Radiculopathy, lumbar region
CPT/HCPCS: 20610; 77002; J1040

== ENCOUNTER → 2023-03-15 11:09 | Outpatient (POV) | payer MEDICAID, SELFPAY ==
--- NOTE | 2023-03-15 11:27 | EXP.PAIN.SOA ---
[facility] Pain Management SOAP Note Subjective:: Patient is a pleasant 63-year-old female who presents today for follow-up of right hip intra-articular injection on 02/28/2023. We are currently treating the patient for degenerative disc disease of lumbar spine with lumbar radiculopathy symptoms, ligamentum flavum hypertrophy, right hip pain, right knee pain. Today she rates her pain a 5 out of 10. She states that she has had at least 60% improvement following this injection and feels like it is still continuing to provide additional relief. Patient states she has been able to increase her activity with decreased pain symptoms and states that even her knee seems to be better. We do prescribe her compounding cream from our office. Her Thierno is [id number]. Its been reviewed and appropriate. Review of Systems: General: No recent weight changes, no fever, no sleep disturbances Respiratory: No cough, no shortness of air, no recurring pulmonary infections Cardiovascular/peripheral vascular: No chest pain, no palpitations, no edema, no shortness of breath Gastrointestinal: No new onset incontinence, normal bowel movements reported Genitourinary: No new onset incontinence Musculoskeletal: Right hip pain Psychiatric: [Normal mood/affect] Neurological: [Denies weakness in extremities], [denies balance issues] Objective:: Physical Exam: General: Alert and oriented x3, no acute distress, pleasant and cooperative Lungs: Respirations even and unlabored, symmetrical chest expansion Eyes: PERRL Musculoskeletal: Flexion and extension of right hip somewhat guarded secondary to pain, [antalgic gait noted] Neurological: Speech clear, no gross sensory deficit Assessment:: Degenerative disc disease of lumbar spine with lumbar radiculopathy symptoms, ligamentum flavum hypertrophy, right hip pain, right knee pain Plan:: Patient has had significant improvement following her intra-articular hip injection and does not require any additional injective therapy at this time. Patient will return to clinic in 2 weeks for reevaluation of symptoms and plan of care. Patient has been instructed to contact the clinic with any concerns before the next appointment. Dr. Flores has reviewed this note and agrees with this plan of care. This note was dictated using voice recognition software and make contain errors or omissions. [facility] Disclaimer: The information contained in this section may have been updated after the patient was seen, as this information can be updated by other users. Medical History Dizziness Edema Generalized anxiety disorder Numbness of both lower extremities Family History Other No significant family history Social History Smoking Status: Never smoker alcohol intake: current substance use type: denies use current occupational status: retired Travel in the last 8 weeks: None household members: other housing: house number of children: 2 current occupational exposures/hazards: No
[2023-03-15 11:31] VITALS: BP 150/77; PULSE 80; RESP 18; O2SAT 97; BMI 30.7
== END ==
PROVIDERS: PCP Emergency Medicine; Visit Provider Nurse Practitioner Family
DX: M51.16 Intervertebral disc disorders with radiculopathy, lumbar region (principal); M25.551 Pain in right hip; M25.561 Pain in right knee
CPT/HCPCS: 99212; G0463

== ENCOUNTER → 2023-04-10 14:33 | Outpatient (POV) | payer MEDICAID, SELFPAY ==
--- NOTE | 2023-04-10 15:20 | EXP.PAIN.SOA ---
[facility] Pain Management SOAP Note Subjective:: Patient is a pleasant 63-year-old female who presents today for 1 month follow-up. We are currently treating the patient for degenerative disc disease of lumbar spine with lumbar radiculopathy symptoms, ligamentum flavum hypertrophy, right hip pain, knee pain. Today she rates her pain a 7 out of 10. Patient states that she does believe she is back to her baseline from her previous hip injection back at the end of February. Patient states during the time that the injection was helping she did have significant improvement of her pain symptoms and was able to move around easier. Patient stated she previously had at least 60% improvement from that last injection lasting approximately 6 weeks. She does describe her pain today as an aching, throbbing sensation that is worse with increased activity and does frequently cause her knee symptoms to flareup. Patient does state that recently she had to do a 4-1/2-hour drive to a family members in which she was sitting in the backseat and in very awkward positioning during that time. Patient does state that she had worsening pain due to that and it is progressed since. She does state the pain interferes with her ability perform activities of daily living such as cooking and cleaning. Patient is prescribed compounded cream from our office that does provide significant relief. Her Thierno is [id number]. Its been reviewed and appropriate. Review of Systems: General: No recent weight changes, no fever, no sleep disturbances Respiratory: No cough, no shortness of air, no recurring pulmonary infections Cardiovascular/peripheral vascular: No chest pain, no palpitations, no edema, no shortness of breath Gastrointestinal: No new onset incontinence, normal bowel movements reported Genitourinary: No new onset incontinence Musculoskeletal: Right hip pain Psychiatric: [Normal mood/affect] Neurological: [Denies weakness in extremities], [denies balance issues] Objective:: Physical Exam: General: Alert and oriented x3, no acute distress, pleasant and cooperative Lungs: Respirations even and unlabored, symmetrical chest expansion Eyes: PERRL Musculoskeletal: Flexion and extension of right hip somewhat guarded secondary to pain, [antalgic gait noted] Neurological: Speech clear, no gross sensory deficit Assessment:: Degenerative disc disease of lumbar spine with lumbar radiculopathy symptoms, ligamentum flavum hypertrophy, right hip pain, knee pain Plan:: Patient is experiencing significant pain in her right hip with limited range of motion. I have discussed with the patient that she may benefit from repeat intra-articular hip injection. Risk and benefits were discussed with the patient and she would like to proceed forward with this plan of care. Patient previously had a intra-articular hip injection back at the end of February that did provide at least 60% improvement lasting approximately 6 weeks. I will also send in a prescription for methocarbamol 500 mg twice daily and provide a 2-week supply of this medication. Patient will be scheduled for a right hip intra-articular injection. [facility] Disclaimer: The information contained in this section may have been updated after the patient was seen, as this information can be updated by other users. Medical History Dizziness Edema Generalized anxiety disorder Numbness of both lower extremities Family History Other No significant family history Social History Smoking Status: Never smoker alcohol intake: current substance use type: denies use current occupational status: retired Travel in the last 8 weeks: None household members: other housing: house number of children: 2 current occupational exposures/hazards: No
[2023-04-10 15:35] VITALS: BP 149/85; PULSE 81; RESP 18; O2SAT 94; BMI 30.7
== END | disposition home or self-care (01) ==
PROVIDERS: PCP Emergency Medicine; Visit Provider Nurse Practitioner Family
DX: M51.16 Intervertebral disc disorders with radiculopathy, lumbar region (principal); M24.20 Disorder of ligament, unspecified site; M25.551 Pain in right hip; M25.569 Pain in unspecified knee
CPT/HCPCS: 99212; G0463

== ENCOUNTER 2023-04-18 11:06 | Day surgery (SDC) | payer MEDICAID, SELFPAY ==
[2023-04-18 11:22] VITALS: BP 146/86; PULSE 79; RESP 16; TEMP 36.6; O2SAT 99; BMI 31.1
[2023-04-18 11:24] VITALS: BP 141/63; PULSE 81; RESP 18; O2SAT 97
[2023-04-18 11:28] VITALS: BP 141/63; PULSE 81; RESP 18; O2SAT 97
[2023-04-18 11:33] VITALS: BP 148/88; PULSE 74; RESP 16; O2SAT 99
--- NOTE | 2023-04-18 11:33 | P.PCN_ITS ---
Procedure Date: 04/18/23 Time: 11:20 Anesthesiologist:: Jean Pierre Rodriguez CRNA Complications:: None Pre-procedure Diagnosis:: Osteoarthritis right hip. chronic right hip pain. Post-procedure Diagnosis:: Same. Indications for Procedure:: Patient is a very pleasant 63-year-old female comes for a repeat right intra- articular hip injection. Patient had hip injected 8 to 10 weeks ago. She reports significant improvement lasting 7 to 8 weeks. She reports pain intensifies with ambulation. Patient has difficulty transitioning from sitting to standing. She rates her pain 7/10. Procedure Details:: Details of the procedure were explained to the patient. The patient was taken to procedure room placed in the supine position. The area over the right hip was cleaned using chlorhexidine as a cleansing solution. Using fluoroscopy guidance a 3 and half inch 22-gauge spinal needle was used to access the right hip joint without difficulty. After negative aspiration 3 cc of 1% lidocaine +3 cc of 0.25% Marcaine and 40 mg of Depo-Medrol was injected. Needle was withdrawn. Band-Aid applied. Patient tolerated procedure without difficulty. There are no complications. Plan and Disposition:: Patient was discharged without incident.
== END 2023-04-18 11:33 | disposition home or self-care (01) ==
PROVIDERS: PCP Emergency Medicine; Visit Provider Nurse Anesthetist, Certified Registered
DX: M16.11 Unilateral primary osteoarthritis, right hip (principal); M25.551 Pain in right hip; G89.29 Other chronic pain
CPT/HCPCS: 20610; 77002; J1040

== ENCOUNTER → 2023-05-03 13:06 | Outpatient (POV) | payer MEDICAID, SELFPAY ==
--- NOTE | 2023-05-03 13:07 | EXP.PAIN.SOA ---
[facility] Pain Management SOAP Note Subjective:: Patient is a pleasant 63-year-old female who presents today for follow-up of right hip intra-articular injection on 04/18/2023. We are currently treating the patient for degenerative disc disease of lumbar spine with lumbar radiculopathy symptoms, ligamentum flavum hypertrophy, right hip pain, knee pain. Today she rates her pain a 4 out of 10. She does state that she has had significant improvement of approximately 50% relief following this injection and feels like it still continuing to provide additional relief. Patient states she has been able to increase her activity with decreased pain and feels overall more functional. Patient does also state that her knee symptoms in the left leg have improved following this injection. Patient is prescribed compounding cream from our office that she states still helps additionally. Her Thierno is [id number].Its been reviewed and appropriate. Review of Systems: General: No recent weight changes, no fever, no sleep disturbances Respiratory: No cough, no shortness of air, no recurring pulmonary infections Cardiovascular/peripheral vascular: No chest pain, no palpitations, no edema, no shortness of breath Gastrointestinal: No new onset incontinence, normal bowel movements reported Genitourinary: No new onset incontinence Musculoskeletal: Right hip pain Psychiatric: [Normal mood/affect] Neurological: [Denies weakness in extremities], [denies balance issues] Objective:: Physical Exam: General: Alert and oriented x3, no acute distress, pleasant and cooperative Lungs: Respirations even and unlabored, symmetrical chest expansion Eyes: PERRL Musculoskeletal: Flexion and extension of lumbar [spine] somewhat guarded secondary to pain, [antalgic gait noted] Neurological: Speech clear, no gross sensory deficit Assessment:: degenerative disc disease of lumbar spine with lumbar radiculopathy symptoms, ligamentum flavum hypertrophy, right hip pain, knee pain Plan:: Patient has had significant improvement of her right hip symptoms following her intra-articular injection and does not require any additional injective therapy at this time. Patient will return to clinic in 1 month for reevaluation of symptoms and plan of care. Patient has been instructed to contact the clinic with any concerns before the next appointment. Dr. Flores has reviewed this note and agrees with this plan of care. This note was dictated using voice recognition software and make contain errors or omissions. [facility] Disclaimer: The information contained in this section may have been updated after the patient was seen, as this information can be updated by other users. Medical History Dizziness Edema Generalized anxiety disorder Numbness of both lower extremities Family History Other No significant family history Social History Smoking Status: Never smoker alcohol intake: current substance use type: denies use current occupational status: retired Travel in the last 8 weeks: None household members: other housing: house number of children: 2 current occupational exposures/hazards: No
[2023-05-03 14:06] VITALS: BP 144/78; PULSE 66; RESP 18; O2SAT 97; BMI 30.7
== END ==
PROVIDERS: Visit Provider Nurse Practitioner Family
DX: M51.16 Intervertebral disc disorders with radiculopathy, lumbar region (principal); M25.551 Pain in right hip; M25.569 Pain in unspecified knee
CPT/HCPCS: 99212; G0463

== ENCOUNTER → 2023-06-19 13:06 | Outpatient (POV) | payer MEDICAID, SELFPAY ==
[2023-06-19 13:31] VITALS: BP 119/69; PULSE 73; RESP 18; O2SAT 97; BMI 30.7
--- NOTE | 2023-06-19 13:44 | EXP.PAIN.SOA ---
[facility] Pain Management SOAP Note Subjective:: Patient is a pleasant 63-year-old female who presents today for follow-up. We are currently treating the patient for degenerative disc disease of lumbar spine with lumbar radiculopathy symptoms, ligamentum flavum hypertrophy, right hip pain, left knee pain. Today she rates her pain a 7 out of 10. Patient denies any new trauma or injury. She does state that she feels like her last hip injection has now officially worn off. Patient does describe her pain as an aching, throbbing sensation that is worse with increased activity. Patient does state that it interferes with her ability perform activities of daily living such as cooking and cleaning. Patient did previously have her last hip intra-articular injection back in April that did provide 50% relief and lasted up until the last few weeks. Patient states she was overall more functional when she had this injection and was able to do more activities of daily living. Patient is interested in repeating this injection. Her Thierno is [id number]. Its been reviewed and appropriate. Review of Systems: General: No recent weight changes, no fever, no sleep disturbances Respiratory: No cough, no shortness of air, no recurring pulmonary infections Cardiovascular/peripheral vascular: No chest pain, no palpitations, no edema, no shortness of breath Gastrointestinal: No new onset incontinence, normal bowel movements reported Genitourinary: No new onset incontinence Musculoskeletal: Right hip pain, right knee pain Psychiatric: [Normal mood/affect] Neurological: [Denies weakness in extremities], [denies balance issues] Objective:: Physical Exam: General: Alert and oriented x3, no acute distress, pleasant and cooperative Lungs: Respirations even and unlabored, symmetrical chest expansion Eyes: PERRL Musculoskeletal: Flexion and extension of right hip somewhat guarded secondary to pain, [antalgic gait noted] Neurological: Speech clear, no gross sensory deficit Assessment:: Degenerative disc disease of lumbar spine with lumbar radiculopathy symptoms, ligamentum flavum hypertrophy, right hip pain, left knee pain Plan:: Patient is experiencing worsening pain in her right hip with limited range of motion. I have discussed with the patient that she may benefit from a repeat right hip intra-articular injection. Risk and benefits were discussed with the patient and she would like to proceed forward with this plan of care. Patient did have a previous intra-articular hip injection that provided more than 50% relief lasting approximately 2. Patient will be scheduled for a right hip intra-articular injection. I have also discussed with the patient in future we may look at also doing intra-articular knee injections if her knee pain continues. Patient has been instructed to contact the clinic with any concerns before the next appointment. Dr. Flores has reviewed this note and agrees with this plan of care. This note was dictated using voice recognition software and make contain errors or omissions. [facility] Disclaimer: The information contained in this section may have been updated after the patient was seen, as this information can be updated by other users. Medical History Dizziness Edema Generalized anxiety disorder Numbness of both lower extremities Family History Other No significant family history Social History Smoking Status: Never smoker alcohol intake: current substance use type: denies use current occupational status: retired Travel in the last 8 weeks: None household members: other housing: house number of children: 2 current occupational exposures/hazards: No
== END ==
PROVIDERS: PCP Emergency Medicine; Visit Provider Nurse Practitioner Family
DX: M51.16 Intervertebral disc disorders with radiculopathy, lumbar region (principal); M25.551 Pain in right hip; M25.562 Pain in left knee
CPT/HCPCS: 99212; G0463

== ENCOUNTER 2023-06-27 10:37 | Day surgery (SDC) | payer MEDICAID, SELFPAY ==
[2023-06-27 10:53] VITALS: BP 158/78; PULSE 64; RESP 18; TEMP 36.2; O2SAT 100; BMI 36.2
[2023-06-27 11:13] VITALS: BP 137/83; PULSE 64; RESP 16; O2SAT 100
[2023-06-27 11:14] VITALS: BP 160/83; PULSE 82; RESP 18; O2SAT 96
[2023-06-27 11:17] VITALS: BP 160/83; PULSE 82; RESP 18; O2SAT 96
--- NOTE | 2023-06-27 11:57 | P.PCN_ITS ---
Procedure Date: 06/27/23 Time: 11:45 Anesthesiologist:: Jean Pierre Rodriguez CRNA Complications:: None Pre-procedure Diagnosis:: Osteoarthritis right hip. Chronic right hip pain. Post-procedure Diagnosis:: Same. Indications for Procedure:: Patient is a very pleasant 63-year-old female that comes our clinic today for a right intra-articular hip injection. Patient has responded very well to this particular injection in the past. Patient reports 3 months of improvement with her last injection. Patient describes her right hip pain as constant, dull, intermittent, sharp, stabbing. Patient reports having difficulty ambulating for any length of time due to pain. Patient also reports stairs cause pain to intensify. She rates her pain 7/10. Procedure Details:: Details of the procedure were explained to the patient. The patient was taken t o procedure room placed in the supine position. The area over the right hip was cleaned using chlorhexidine as a cleansing solution. Using fluoroscopy guidance a 3 and half inch 22-gauge spinal needle was used to access the right hip joint without difficulty. After negative aspiration 3 cc of 1% lidocaine +3 cc of 0.25% Marcaine and 40 mg of Depo-Medrol was injected. Needle was withdrawn. Band-Aid applied. Patient tolerated procedure without difficulty. There are no complications. Plan and Disposition:: Patient was discharged without incident.
== END 2023-06-27 11:13 | disposition home or self-care (01) ==
PROVIDERS: PCP Emergency Medicine; Visit Provider Nurse Anesthetist, Certified Registered
DX: M16.11 Unilateral primary osteoarthritis, right hip (principal); M25.551 Pain in right hip; G89.29 Other chronic pain
CPT/HCPCS: 20610; 77002; J1040

== ENCOUNTER → 2023-07-17 11:34 | Outpatient (POV) | payer MEDICAID, SELFPAY ==
[2023-07-17 12:09] VITALS: BP 145/78; PULSE 67; RESP 18; O2SAT 100; BMI 30.4
--- NOTE | 2023-07-17 12:09 | A.OFFVIS_ITS ---
[facility] Pain Management SOAP Note Subjective:: Patient is a pleasant 63-year-old female who presents today for follow-up of right intra-articular hip injection on 06/27/2023. We are currently treating the patient for degenerative disc disease of lumbar spine with lumbar radiculopathy symptoms, ligamentum flavum hypertrophy, right hip pain, left knee pain. Today she rates her pain a 7 out of 10. Patient denies any new trauma or injury. She does state that she did not notice significant improvement following this injection and she is back to her baseline at today's visit. Patient has had multiple injections into her hip and did previously see Dr. Rickie Javier who was recommending conservative treatment over replacement. Patient does state the pain interferes with her ability perform activities of living such as cooking or cleaning or even simple ambulation. Patient does state that she feels like that her pains aggravate her other joints such as her hip and knee. Her Thierno has been reviewed and is appropriate. Review of Systems: General: No recent weight changes, no fever, no sleep disturbances Respiratory: No cough, no shortness of air, no recurring pulmonary infections Cardiovascular/peripheral vascular: No chest pain, no palpitations, no edema, no shortness of breath Gastrointestinal: No new onset incontinence, normal bowel movements reported Genitourinary: No new onset incontinence Musculoskeletal: Right hip pain, left knee pain Psychiatric: [Normal mood/affect] Neurological: [Denies weakness in extremities], [denies balance issues] Objective:: Physical Exam: General: Alert and oriented x3, no acute distress, pleasant and cooperative Lungs: Respirations even and unlabored, symmetrical chest expansion Eyes: PERRL Musculoskeletal: Flexion and extension of lumbar [spine] somewhat guarded secondary to pain, [antalgic gait noted] Neurological: Speech clear, no gross sensory deficit Assessment:: Degenerative disc disease of lumbar spine with lumbar radiculopathy symptoms, ligamentum flavum hypertrophy, right hip pain, left knee pain Plan:: Patient continues to have limited range of motion of her lumbar spine along with right hip and left knee. I have discussed with the patient that I will send her back to Dr. Javier's office for additional evaluation for hip replacement. Patient has had multiple intra-articular hip injections with the last couple i njections not providing as much relief or improvement. Patient will return to clinic in 3 weeks following her evaluation with Dr. Javier's office. Patient has been instructed to contact the clinic with any concerns before the next appointment. Dr. Flores has reviewed this note and agrees with this plan of care. This note was dictated using voice recognition software and make contain errors or omissions. [facility] Disclaimer: The information contained in this section may have been updated after the patient was seen, as this information can be updated by other users. Medical History Dizziness Edema Generalized anxiety disorder Numbness of both lower extremities Family History Other No significant family history Social History Smoking Status: Never smoker alcohol intake: current substance use type: denies use current occupational status: retired Travel in the last 8 weeks: None household members: other housing: house number of children: 2 current occupational exposures/hazards: No
== END ==
PROVIDERS: PCP Emergency Medicine; Visit Provider Nurse Practitioner Family
DX: M51.16 Intervertebral disc disorders with radiculopathy, lumbar region (principal); M24.28 Disorder of ligament, vertebrae; M25.551 Pain in right hip; M25.562 Pain in left knee
CPT/HCPCS: 99212; G0463

== ENCOUNTER 2023-07-19 17:39 | Emergency (ER) | payer MEDICAID, SELFPAY ==
[2023-07-19 18:00] VITALS: BP 117/75; PULSE 71; RESP 18; TEMP 36.6; O2SAT 97; BMI 30.7
--- NOTE | 2023-07-19 18:24 | EXP.UTC ---
Discharge Plan Disposition Patient Disposition: Home, Self-Care Condition: Good Prescriptions Prescriptions: New cephalexin [cephalexin] 500 mg tablet 500 mg PO BID 10 Days Qty: 20 0RF No Action Ubrelvy 100 mg tablet See Rx Instructions .ROUTE .COMPLEX Qty: 10 3RF Rx Instructions: TAKE 1 TABLET BY MOUTH NEEDED FOR MIGRAINE HEADACHE [id number] [Fioricet] 50-300-40 mg capsule 1 cap PO DAILY PRN (Reason: headache) Qty: 30 3RF buspirone 10 mg tablet 10 mg PO BID Qty: 60 0RF nadolol 20 mg tablet 10 mg PO DAILY methocarbamol 500 mg tablet 500 mg PO BID Referrals Follow up/Referrals: Alcon Marrero MD [Primary Care Provider] - See instructions Activity Restrictions/Add. Instructions Additional Instructions/Restrictions: keep area clean and dry watch for signs of infection follow up with pcp return if worsen of no improvement Instructions Patient Instructions: DI for Puncture Wound Discharge ED Provider: Lupis ([facility])Louie [facility] [place] General Stated complaint: dog bite 07/19, right arm lac Mode of Arrival: Ambulatory Source of Information: Patient Limitations: No Limitations Time Seen by Provider: 07/19/23 18:37 Description of Symptoms (Recalled from Triage Doc. by RN): Pt stated that her right forearm has a skin tear due to dog's nails from it jumping on her. HEENT Symptoms (Recalled from RN notes): No Resp Symptoms (Recalled from RN notes): No Skin Symptoms (Recalled from RN notes): Yes MS Symptoms (Recalled from RN notes): No Functional Status (Recalled from RN notes): n/a History of Present Illness Provider Complaint: 63 yr old female presents for right forearm has a skin tear due to dog's nails from it jumping on her. Related Data Home Medications Medication Instructions Recorded Confirmed nadolol 20 mg tablet 10 mg PO DAILY BLOOD PRESSURE 01/06/23 07/19/23 methocarbamol 500 mg tablet 500 mg PO BID . 04/18/23 07/19/23 Previous Rx's Medication Instructions Recorded [id number]-lpcfnevraboqf-[id number] 1 cap PO DAILY PRN headache #30 03/13/23 50 mg-300 mg-40 mg capsule caps (Fioricet) ubrogepant 100 mg tablet (Ubrelvy) See Rx Instructions .Route 03/13/23 .COMPLEX MIGRAINES #10 tabs buspirone 10 mg tablet 10 mg PO BID . #60 tabs 05/18/23 cephalexin 500 mg tablet 500 mg PO BID 10 days #20 tabs 07/19/23 Allergies Allergy/AdvReac Type Severity Reaction Status Date / Time No Known Allergies Allergy Verified 07/19/23 18:21 Worker's Comp Is this a Worker's Comp case?: No [facility] Disclaimer: The information contained in this section may have been updated after the patient was seen, as this information can be updated by other users. Medical History , FORECLOSURE SPECIALIST) Dizziness Edema Generalized anxiety disorder Numbness of both lower extremities Family History , FORECLOSURE SPECIALIST) No significant family history Social History , FORECLOSURE SPECIALIST) Smoking Status: Never smoker alcohol intake: current substance use type: denies use current occupational status: retired Travel in the last 8 weeks: None household members: other housing: house number of children: 2 current occupational exposures/hazards: No ROS Obtained: Yes All systems reviewed & no additional complaints except as documented Constitutional Constitutional: Reports system reviewed and no additional complaints, except as documented Eyes Eyes: Reports system reviewed and no additional complaints, except as documented ENT Ears, Nose, Mouth, and Throat: Reports system reviewed and no additional complaints, except as documented Cardiovascular Cardiovascular: Reports system reviewed and no additional complaints, except as documented Respiratory Respiratory: Reports system reviewed and no additional complaints, except as do
--- NOTE | 2023-07-19 18:43 | PC.NURSE ---
Pt has two small puncture wounds to the right fore arm. It was cleaned with hibiclens, and placed antibiotic ointment on placed. It was then done with a telfa, and wrapped in gauze.
[2023-07-19 19:05] VITALS: BP 117/75; PULSE 71; RESP 18; TEMP 36.6; O2SAT 97
== END 2023-07-19 19:05 | disposition home or self-care (01) ==
PROVIDERS: Emergency Provider Nurse Practitioner Family; PCP Emergency Medicine
DX: S51.831A Puncture wound without foreign body of right forearm, initial encounter (principal); W54.8XXA Other contact with dog, initial encounter; Z23 Encounter for immunization
CPT/HCPCS: 90715; 96372; 99204; 99212; G0463

== ENCOUNTER → 2023-08-10 13:19 | Outpatient (CLI) | payer MEDICAID, SELFPAY ==
--- NOTE | 2023-08-10 13:27 | XR_ITS ---
FINAL REPORT CLINICAL HISTORY: right hip pain COMPARISON: 12/15/2022 FINDINGS: Right hip Three views were obtained. There is no acute fracture or dislocation. The joint spaces appear normal. No soft tissue abnormality is identified. IMPRESSION: No acute process. Reviewed, Interpreted and Dictated by Roger Barros III, MD Transcribed by Alejandra Ross Authenticated and [facility]
== END ==
PROVIDERS: PCP Internal Medicine; Visit Provider Orthopaedic Surgery
DX: M25.551 Pain in right hip (principal)
CPT/HCPCS: 73502

== ENCOUNTER → 2023-08-23 09:39 | Outpatient (POV) | payer MEDICAID, SELFPAY ==
--- NOTE | 2023-08-23 11:22 | EXP.PAIN.SOA ---
[facility] Pain Management SOAP Note Subjective:: Patient is a pleasant 63-year-old female who presents today for follow-up. We are currently treating the patient for degenerative disc disease of lumbar spine with lumbar radiculopathy symptoms, ligamentum flavum hypertrophy, right hip pain, left knee pain. Today she rates her pain a 7 out of 10. Patient denies any new trauma or injury. She states she continues to have pain in her right hip and low back. Patient has previously had hip injections that did provide significant improvement however her last injections did not provide the relief as previous ones. Patient only had minimal relief while the numbing medication lasted. Patient does state that she has been back to Dr. Javier's office who did do a left knee injection and states it did help significantly. Patient states that he is stating that her hip does not need to be replaced and that she only has some arthritis and that he believes her pain is more related to lumbar or SI. Patient denies any recent imaging of either of these areas. We had reviewed submitted for updated imaging however was denied by insurance at that time. Patient states it has been a couple of years since she has had imaging and denies ever having SI imaging. Patient does state the pain continues to interfere with her ability perform activities of daily living such as cooking and cleaning. She describes this as a aching, throbbing sensation with some numbness that does stay all around her right hip and buttocks area. 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 She states she never heard back after that. Her Thierno has been reviewed and is appropriate. Injections: 02/28/2023?right hip intra-articular 60% 6-week relief 04/18/2023 right hip intra-articular 50% 6 to 8-week relief 06/27/2023 right hip intra-articular only minimal relief Review of Systems: General: No recent weight changes, no fever, no sleep disturbances Respiratory: No cough, no shortness of air, no recurring pulmonary infections Cardiovascular/peripheral vascular: No chest pain, no palpitations, no edema, no shortness of breath Gastrointestinal: No new onset incontinence, normal bowel movements reported Genitourinary: No new onset incontinence Musculoskeletal: Low back, right hip pain Psychiatric: [Normal mood/affect] Neurological: [Denies weakness in extremities], [denies balance issues] Objective:: Physical Exam: General: Alert and oriented x3, no acute distress, pleasant and cooperative Lungs: Respirations even and unlabored, symmetrical chest expansion Eyes: PERRL Musculoskeletal: Flexion and extension of lumbar [spine] somewhat guarded secondary to pain, [antalgic gait noted] point tenderness along right SI and right greater trochanteric bursa with a negative Jackie's, positive Gaenslen's, compression and distraction exam Neurological: Speech clear, no gross sensory deficit Assessment:: Degenerative disc disease of lumbar spine with lumbar radiculopathy symptoms, ligamentum flavum hypertrophy, right hip pain, left knee pain, right greater trochanteric bursitis, right sacroiliitis Plan:: Patient continues to experience significant pain in her low back and right hip with limited range of motion. Patient did have point tenderness along her right SI and right greater trochanteric bursa. Patient did have a negative Jackie's however a positive Gaenslen's, compression and distraction exam. I have discussed with the patient that she may benefit from a right SI or right greater trochanteric bursa injection in the future. I have also discussed with the patient she may benefit from updated imaging of her right SI and lumbar spine. We will discuss this at future visits. I have counseled the patient due to h
[2023-08-23 12:23] VITALS: BP 117/75; PULSE 74; RESP 18; O2SAT 100; BMI 30.7
== END ==
PROVIDERS: PCP Emergency Medicine; Visit Provider Nurse Practitioner Family
DX: M51.16 Intervertebral disc disorders with radiculopathy, lumbar region (principal); M25.551 Pain in right hip; M25.562 Pain in left knee; M70.61 Trochanteric bursitis, right hip; M46.1 Sacroiliitis, not elsewhere classified
CPT/HCPCS: 99212; G0463

== ENCOUNTER 2023-11-19 17:58 | Emergency (ER) | payer MEDICAID, SELFPAY ==
[2023-11-19 18:35] VITALS: BP 135/76; PULSE 72; RESP 19; TEMP 36.7; O2SAT 98; BMI 25.7
--- NOTE | 2023-11-19 18:48 | EXP.UTC ---
Discharge Plan Disposition Patient Disposition: Home, Self-Care Condition: Good Prescriptions Prescriptions: New indomethacin 50 mg capsule 50 mg PO TID PRN (Reason: gout) Qty: 15 0RF Rx Instructions: administer with food or milk No Action Ubrelvy 100 mg tablet See Rx Instructions .ROUTE .COMPLEX Qty: 10 3RF Rx Instructions: TAKE 1 TABLET BY MOUTH NEEDED FOR MIGRAINE HEADACHE saidjyewxj-ruwjhieppqxdj-qjoj [Fioricet] 50-300-40 mg capsule 1 cap PO DAILY PRN (Reason: headache) Qty: 30 3RF buspirone 10 mg tablet 10 mg PO BID Qty: 60 0RF nadolol 20 mg tablet 10 mg PO DAILY methocarbamol 500 mg tablet 500 mg PO BID cephalexin [cephalexin] 500 mg tablet 500 mg PO BID 10 Days Qty: 20 0RF Referrals Follow up/Referrals: Provider,Referral, MD [Primary Care Provider] - See instructions Activity Restrictions/Add. Instructions Additional Instructions/Restrictions: Take medication as prescribed Follow up with your Family Doctor if no improvement or any worsening of symptoms Return if needed Straight to ER if any life threatening symptoms Clinical Impressions Clinical Impression: Gout flare Qualifiers: Gout site: toe Gout etiology: unspecified cause Laterality: right Qualified Code(s): M10.9 - Gout, unspecified Instructions Patient Instructions: Gout, DI for Gout Discharge ED Provider: Jaelyn Gonzales [facility] [place] General Stated complaint: Red,swollen right foot Mode of Arrival: Ambulatory Source of Information: Patient Limitations: No Limitations Time Seen by Provider: 11/19/23 18:48 Description of Symptoms (Recalled from Triage Doc. by RN): PATIENT C/O POSSIBLE GOUT TO RIGHT GREAT TOE SINCE MONDAY HEENT Symptoms (Recalled from RN notes): No Resp Symptoms (Recalled from RN notes): No Skin Symptoms (Recalled from RN notes): No MS Symptoms (Recalled from RN notes): Yes Functional Status (Recalled from RN notes): WNL History of Present Illness Provider Complaint: Patient states that she has a history of gout and thinks she is having flare States that she noticed Wed she was having some pain/stiffness in her right great toe that has continued and now it is a little swollen painful and red States that she thought it would get better but it hasnt States that she has been in the ED several times years ago for this and came in to get something for it Related Data Home Medications Medication Instructions Recorded Confirmed nadolol 20 mg tablet 10 mg PO DAILY BLOOD PRESSURE 01/06/23 08/23/23 methocarbamol 500 mg tablet 500 mg PO BID . 04/18/23 08/23/23 Previous Rx's Medication Instructions Recorded usknolfblm-yvynnifznbojy-mhopjilz 1 cap PO DAILY PRN headache #30 03/13/23 50 mg-300 mg-40 mg capsule caps (Fioricet) ubrogepant 100 mg tablet (Ubrelvy) See Rx Instructions .Route 03/13/23 .COMPLEX MIGRAINES #10 tabs buspirone 10 mg tablet 10 mg PO BID . #60 tabs 05/18/23 cephalexin 500 mg tablet 500 mg PO BID 10 days #20 tabs 07/19/23 indomethacin 50 mg capsule 50 mg PO TID PRN gout #15 caps 11/19/23 Allergies Allergy/AdvReac Type Severity Reaction Status Date / Time No Known Allergies Allergy Verified 08/10/23 13:55 Worker's Comp Is this a Worker's Comp case?: No [facility] Disclaimer: The information contained in this section may have been updated after the patient was seen, as this information can be updated by other users. Medical History Dizziness Edema Generalized anxiety disorder Numbness of both lower extremities Family History Other No significant family history Social History Smoking Status: Never smoker alcohol intake: current substance use type: denies use current occupational status: retired Travel in the last 8 weeks: None household members: other housing: house number of children: 2 current occupational exposures/hazards: No ROS Obtained: Yes All systems reviewed & no additional complaints except as documented and Yes Systems reviewed as appropriate & no additional complaints except as documented Constitutional Constitutional: Reports system reviewed and no additional complaints, except as documented and Reports as per HPI Cardiovascular Cardiovascular: Reports system reviewed and no additional complaints, except as documented and Reports as per HPI Respiratory Respiratory: Reports system reviewed and no additional complaints, except as documented and Reports as per HPI Gastrointestinal Gastrointestingal: Reports system reviewed and no additional complaints, except as documented and as per HPI Integumentary/Breasts Skin/Breast: Reports system reviewed and no additional complaints, except as documented and Reports as per HPI Comments: Pain, redness and mild warmth to right great toe and pain with movement and walking denies injury Physical Exam General General appearance: alert and in no apparent distress ENT ENT exam: Present mucous membranes moist Respiratory Respiratory exam: Present normal lung sounds bilaterally; Absent respiratory distress or wheezes Cardiovascular Cardiovascular exam: Present regular rate, normal rhythm and normal heart sounds Expanded Lower Extremity Exam Right: Top foot image: 1. mild swelling, redness and warmth noted reports pain worse with movement and tender to the touch, reports feels like glass under the skin Neurological Exam Neurological exam: Present alert, oriented X3 and normal gait Medical Decision Making Thierno Inquiry Pt receiving controlled substance: No Thierno was queried for this patient: No Vital Signs: 11/19/23 18:35 Temperature 98.0 F Temperature Source Oral Pulse Rate [Left Brachial] 72 Respiratory Rate 19 Blood Pressure [Left Arm] 135/76 Blood Pressure Mean [Left Arm] 95 Blood Pressure Source [Left Arm] Automatic Cuff Blood Pressure Position [Left Arm] Sitting 02 Sat by Pulse Oximetry 98 Oxygen Delivery Method Room Air Medical Decision Narrative: Discussed with patient about uric acid and xray to rule out injury and check uric level and she advised that this feels just like it did when she had gout before and wanted to get treated for gout
[2023-11-19] MEDS: METHYLPREDNISOLONE SOD SUCC 125MG VIAL 125 MG IM (19:10)
[2023-11-19 19:20] VITALS: BP 135/76; PULSE 72; RESP 19; TEMP 36.7; O2SAT 98
== END 2023-11-19 19:31 | disposition home or self-care (01) ==
LOC: ER 18:00 → UTC 18:05
PROVIDERS: Emergency Provider Nurse Practitioner
DX: M10.071 Idiopathic gout, right ankle and foot (principal); F41.1 Generalized anxiety disorder
CPT/HCPCS: 96372; 99212; 99214; G0463

== ENCOUNTER 2024-01-08 17:19 | Emergency (ER) | payer MEDICAID, SELFPAY ==
[2024-01-08 17:45] VITALS: BP 136/81; PULSE 76; RESP 18; TEMP 36.7; O2SAT 99; BMI 29.6
--- NOTE | 2024-01-08 18:13 | EXP.UTC ---
Discharge Plan Disposition Patient Disposition: Home, Self-Care Condition: Good Prescriptions Prescriptions: New indomethacin 50 mg capsule 50 mg PO TID PRN (Reason: gout) Qty: 15 0RF Rx Instructions: administer with food or milk Referrals Follow up/Referrals: Provider,Referral, MD [Primary Care Provider] - See instructions Activity Restrictions/Add. Instructions Additional Instructions/Restrictions: Take medication as prescribed Follow up with your Family Doctor if symptoms continue Follow up with your Doctor to discuss further treatment and prevention of gout flares Clinical Impressions Clinical Impression: Gout flare Qualifiers: Gout site: toe Gout etiology: unspecified cause Laterality: right Qualified Code(s): M10.9 - Gout, unspecified Instructions Patient Instructions: Gout, DI for Gout Discharge ED Provider: Jaelyn Gonzales [facility] General Stated complaint: Right Foot pain Mode of Arrival: Ambulatory Source of Information: Patient Limitations: No Limitations Time Seen by Provider: 01/08/24 18:17 Description of Symptoms (Recalled from Triage Doc. by RN): PATIENT C/O POSSIBLE GOUT IN RIGHT FOOT SINCE MONDAY AFTERNOON HEENT Symptoms (Recalled from RN notes): No Resp Symptoms (Recalled from RN notes): No Skin Symptoms (Recalled from RN notes): No MS Symptoms (Recalled from RN notes): Yes Functional Status (Recalled from RN notes): WNL History of Present Illness Provider Complaint: Patient states she has a hx of gout and states she noticed on Monday she was having some discomfort and pain in her right great toe where she has had gout before and today it was starting to look a little red and still bothering her so she came in to get treated for gout States feels like it did before when she has had it Related Data Previous Rx's Medication Instructions Recorded indomethacin 50 mg capsule 50 mg PO TID PRN gout #15 caps 01/08/24 Allergies Allergy/AdvReac Type Severity Reaction Status Date / Time No Known Allergies Allergy Verified 08/10/23 13:55 Worker's Comp Is this a Worker's Comp case?: No [facility] Disclaimer: The information contained in this section may have been updated after the patient was seen, as this information can be updated by other users. Medical History Dizziness Edema Generalized anxiety disorder Numbness of both lower extremities Family History Other No significant family history Social History Smoking Status: Never smoker alcohol intake: current alcohol intake frequency: a few times a week substance use type: denies use current occupational status: retired Travel in the last 8 weeks: None household members: other housing: house number of children: 2 current occupational exposures/hazards: No ROS Obtained: Yes All systems reviewed & no additional complaints except as documented and Yes Systems reviewed as appropriate & no additional complaints except as documented Constitutional Constitutional: Reports system reviewed and no additional complaints, except as documented, Reports as per HPI, Denies body ache, Denies chills and Denies fever(s) ENT Ears, Nose, Mouth, and Throat: Reports system reviewed and no additional complaints, except as documented and Reports as per HPI Cardiovascular Cardiovascular: Reports system reviewed and no additional complaints, except as documented and Reports as per HPI Respiratory Respiratory: Reports system reviewed and no additional complaints, except as documented and Reports as per HPI Gastrointestinal Gastrointestingal: Reports system reviewed and no additional complaints, except as documented and as per HPI Musculoskeletal Musculoskeletal: Reports system reviewed and no additional complaints, except as documented, Reports as per HPI and Reports other Comments: Pain and tenderness in joint of right great toe where she has had gout flares in the past Physical Exam General General appearance: alert and in no apparent distress Respiratory Respiratory exam: Present normal lung sounds bilaterally; Absent respiratory distress or wheezes Cardiovascular Cardiovascular exam: Present regular rate, normal rhythm and normal heart sounds Expanded Lower Extremity Exam Right: Top foot image: 1. pain with movement and mild redness, denies known injury Neurological Exam Neurological exam: Present alert, oriented X3 and normal gait Medical Decision Making Thierno Inquiry Pt receiving controlled substance: No Thierno was queried for this patient: No Vital Signs: 01/08/24 17:45 Temperature 98.1 F Temperature Source Oral Pulse Rate [Left Brachial] 76 Respiratory Rate 18 Blood Pressure [Left Arm] 136/81 Blood Pressure Mean [Left Arm] 99 Blood Pressure Source [Left Arm] Automatic Cuff Blood Pressure Position [Left Arm] Sitting 02 Sat by Pulse Oximetry 99 Oxygen Delivery Method Room Air Medical Decision Narrative: discussed xray and uric acid level and patient declined states that it feels like it has in the past with gout flare and denies known injury
[2024-01-08] MEDS: METHYLPREDNISOLONE SOD SUCC 125MG VIAL 125 MG IM (18:33)
[2024-01-08 18:52] VITALS: BP 136/81; PULSE 76; RESP 18; TEMP 36.7; O2SAT 99
== END 2024-01-08 18:57 | disposition home or self-care (01) ==
PROVIDERS: Emergency Provider Nurse Practitioner
DX: M10.071 Idiopathic gout, right ankle and foot (principal); M79.671 Pain in right foot
CPT/HCPCS: 96372; 99212; 99214; G0463

== ENCOUNTER 2024-07-29 15:30 | Outpatient (CLI) | payer MEDICAID, SELFPAY ==
[2024-07-29 18:21] LABS: Basophils % 0.5 % (0.1-2.0); Eosinophils # 0.2 K/mm3 (0.0-0.4); Hematocrit 40.5 % (37.0-47.0); Hemoglobin 13.5 g/dL (12.2-16.2); Lymphocytes # 1.5 K/mm3 (0.7-4.5); Lymphocytes % 28.1 % (10-50); Mean Corpuscular HGB Conc 33.2 g/dL (31.8-35.4); Mean Corpuscular Hemoglobin 31.8 pg (27.0-31.2); Mean Corpuscular Volume 95.8 fl (81-99); Mean Platelet Volume 8.7 fl (7.4-10.4); Monocytes # 0.3 K/mm3 (0.1-1.0); Monocytes % 5.2 % (1.7-9.3); Neutrophils # 3.4 K/mm3 (1.8-7.8); Neutrophils % 62.3 % (37.0-80.0); Platelet Count 218 K/mm3 (142-424); Red Blood Count 4.23 M/mm3 (4.20-5.40); Red Cell Distribution Width 13.6 % (11.5-17.5); White Blood Count 5.4 K/mm3 (4.8-10.8)
[2024-07-29 18:56] LABS: Alanine Aminotransferase 26 U/L (12-78); Albumin Level 4.4 g/dl (3.5-5.0); Albumin/Globulin Ratio 1.5 (1.1-1.8); Alkaline Phosphatase 127 U/L (38-126); Aspartate Amino Transferase 31 U/L (14-36); Bilirubin,Total 0.9 mg/dl (0.2-1.3); Blood Urea Nitrogen 19 mg/dl (7-17); Calcium 9.5 mg/dl (8.4-10.2); Carbon Dioxide 32 mmol/L (22.0-30.0); Chloride 104 mmol/L (98-107); Chol/HDL Ratio 2.3 (1-3.5); Cholesterol 154 mg/dl (140-200); Estimated Glomerular Filt Rate 124 ml/min (>60); GFR (African American) 150 ML/MIN (>60); Globulin 2.9 g/dL (1.3-3.2); Glucose 87 mg/dl (74-100); HDL Cholesterol 67 mg/dl (40-60); Sodium 142 mmol/L (136-145); Total Protein,Serum 7.3 g/dl (6.3-8.2); Triglycerides 77 mg/dl (30-150); VLDL Cholesterol 15 mg/dL (0-40)
[2024-07-29 19:08] LABS: Direct LDL Cholesterol 66.78 mg/dL (100-129)
[2024-07-29 19:13] LABS: 25-OH Vitamin D, Total 14.7 ng/mL (30-100)
[2024-07-29 19:25] LABS: Thyroid Stimulating Hormone 6.72 uIU/mL (0.465-4.68)
[2024-07-29 20:13] LABS: Anion Gap 9.8 mEq/L (5-15); Potassium 3.8 mmoL/L (3.5-5.1)
== END 2024-07-29 23:59 | disposition home or self-care (01) ==
LOC: LAB.DROPOF 07-30 08:50
PROVIDERS: PCP Family Medicine; Visit Provider Family Medicine
DX: G43.909 Migraine, unspecified, not intractable, without status migrainosus (principal); I10 Essential (primary) hypertension
CPT/HCPCS: 80050; 80053; 80061; 82306; 84443; 85025

== ENCOUNTER 2024-11-13 16:11 | Outpatient (CLI) | payer MEDICAID, SELFPAY ==
[2024-11-13 20:45] LABS: 25-OH Vitamin D, Total 46.6 ng/mL (30-100); Thyroid Stimulating Hormone 2.49 uIU/mL (0.465-4.68)
== END 2024-11-13 23:59 | disposition home or self-care (01) ==
LOC: LAB.DROPOF 11-14 11:58
PROVIDERS: PCP Family Medicine; Visit Provider Family Medicine
DX: E55.9 Vitamin D deficiency, unspecified (principal); E03.9 Hypothyroidism, unspecified
CPT/HCPCS: 82306; 84443